=== PATIENT | male | born 1980 | race Two or more races ===

== ENCOUNTER 2018-04-15 04:41 | Emergency (ER) | payer SELFPAY ==
--- NOTE | 2018-04-15 05:09 | PDOC ---
History of Present Illness - General Stated Complaint: R FOOT INJURY Time Seen by Provider: 04/15/18 05:02 History Source: Patient Exam Limitations: No Limitations - History of Present Illness Initial Comments: 04/15/18 05:06 Best Contact: PCP: Pmhx: Pshx: Allergies: FH: Social Hx: Cigarettes/ 0 Alcohol/ social Drugs/0 38-year-old male presents to the ER complaining of pain to the right foot. Patient states he slipped and fell, hitting his right foot against a step x2d ago. Pain is described as 6/10 dull nonradiating intermittent discomfort which is exacerbated on weight-bear and certain movements. Pain is alleviated at rest. Patient states he was able to ambulate without any difficulties after his injury but noticed the swelling and pain after approximately 6 hours. Patient denies extremity numbness or tingling sensation. Patient denies any other complaint. Past History - Past Medical History Home Medications: Ambulatory Orders Clindamycin [Cleocin -] 300 mg PO TID #21 capsule 04/15/18 Review of Systems - Review of Systems Able to Perform ROS?: Yes Comments:: 04/15/18 05:05 CONSTITUTIONAL: Absent: fever, chills, diaphoresis, generalized weakness, malaise, loss of appetite MUSCULOSKELETAL: +Right foot pain Denies any ext numbness/tingling sensation neg achilles/ankle pain Absent: myalgia, arthralgia, joint swelling SKIN: Absent: rash, itching, pallor +redness to dorsal foot Is the patient limited Moz[place]ican proficient: No *Physical Exam - Physical Exam Comments: 04/15/18 05:05 GENERAL: Well developed, well nourished. Awake and alert. No acute distress. MUSCULOSKELETAL Normal range of motion at all joints. No bony deformities or tenderness. No CVA tenderness. EXTREMITIES: No cyanosis. No clubbing. No edema. No calf tenderness. SKIN: Warm and dry. Normal capillary refill. No rashes. No jaundice. Right foot: +swelling 2+pedal pulse cap refill <2sec +erythematouos to dorsal foot neg pain to base of 5th mt achilles intact right ankle F.RO.M. neg pain on palp neg obv deformities 04/15/18 05:25 ED Treatment Course - RADIOLOGY Radiology Studies Ordered: Category Date Time Status FOOT-RIGHT [RAD] Stat Radiology 04/15/18 04:48 Taken Radiograph Interpretation: 04/15/18 05:05 Xray right foot neg *DC/Admit/Observation/Transfer Diagnosis at time of Disposition: Cellulitis of foot, right - Discharge Dispostion Condition at time of disposition: Stable Decision to Admit order: No - Prescriptions Prescriptions: Clindamycin [Cleocin -] 300 mg PO TID #21 capsule - Referrals Referrals: Sam Langford MD [Staff Physician] - Victor Manuel Peters MD [Staff Physician] - - Patient Instructions Printed Discharge Instructions: DI for Cellulitis -- Adult Additional Instructions: Keep the foot elevated Take the clindamycin as prescribed until completion follow-up with infectious disease doctor listed on your discharge sheet Wound check in 2 days Return to the ER for severe/persistent/worsening pains or red streaks going up the leg - Post Discharge Activity
[2018-04-15 05:18] VITALS: BP 171/110; PULSE 82; TEMP 98.9; BMI 30.7
[2018-04-15] MEDS ORDERED: CLINDAMYCIN 900 MG PREMIX IVPB 900 MG/50 ML BAG IVPB ONE (05:23)
== END 2018-04-15 05:45 | disposition home or self-care (01) ==
LOC: JER 04:41
DX: L03.115 Cellulitis of right lower limb (principal); W01.0XXA Fall on same level from slipping, tripping and stumbling without subsequent striking against object, initial encounter; Y93.89 Activity, other specified; Y92.9 Unspecified place or not applicable
CPT/HCPCS: 73630-TC-RT-FY; 99282-25

== ENCOUNTER 2018-04-18 12:15 | Emergency (ER) | payer SELFPAY ==
[2018-04-18 12:24] VITALS: BP 155/89; PULSE 84; TEMP 99.1; BMI 30.7
[2018-04-18] MEDS ORDERED: ALBUTEROL SO4 2.5/IPRATROPIUM 0.5 INH SOL 3 ML VIAL.NEB. NEB ONE (13:37)
--- NOTE | 2018-04-18 14:01 | PDOC ---
History of Present Illness - General Chief Complaint: Injury Stated Complaint: RASH/INJURY Time Seen by Provider: 04/18/18 13:30 - History of Present Illness Initial Comments: 38-year-old male with a past medical history significant for hypertension he takes lisinopril. Presents for evaluation of right foot pain. He was seen last week diagnosed with a foot sprain and cellulitis placed on clindamycin is swelling is increased. He also now complains of swelling about the right ankle. 04/18/18 13:55 Past History - Past Medical History Allergies/Adverse Reactions: Allergies Allergy/AdvReac Type Severity Reaction Status Date / Time No Known Allergies Allergy Verified 04/18/18 12:24 Home Medications: Ambulatory Orders Clindamycin [Cleocin -] 300 mg PO TID #21 capsule 04/15/18 Oxycodone HCl/Acetaminophen [Percocet 10-325 mg Tablet] 1 each PO ASDIR COPD: No HTN: Yes - Suicide/Smoking/Psychosocial Hx Smoking History: Never smoked Information on smoking cessation initiated: No Hx Alcohol Use: No Drug/Substance Use Hx: No Substance Use Type: None Review of Systems - Review of Systems Musculoskeletal: Yes: See HPI, Joint Pain All Other Systems: Reviewed and Negative *Physical Exam - Vital Signs Last Vital Signs Temp Pulse Resp BP Pulse Ox 99.1 F 84 16 155/89 100 04/18/18 12:21 04/18/18 12:21 04/18/18 12:21 04/18/18 12:21 04/18/18 12:21 - Physical Exam Comments: There is mild erythema spotty about the medial aspect of the right ankle. There is no streaking. There is also mild swelling about the medial aspect of the ankle. There is full nonpainful range of motion both passive and active of the right ankle. There is moderate swelling about the dorsum of the foot. There is mild ecchymosis about the first MTPJ and medial aspect of the foot. There is no pain with passive motion of the MTPJ. There is diffuse nonspecific tenderness at the dorsum of the foot. No erythema warmth or induration. No pain with passive motion of the toes. Thigh and calf to soft and nontender. There is no inguinal adenopathy. 04/18/18 13:56 04/18/18 14:01 Thigh and calf to soft and nontender. Medical Decision Making - Medical Decision Making Originally diagnosed with a foot sprain cellulitis placed on clindamycin. He feels his swelling is spreading. I have a long discussion with the patient he has dependent edema. He states when he goes to standup his ankle swells even more. I do not appreciate any indication of infection today. There is spotty erythema about the medial aspect of the ankle. However I believe this is just an increase in swelling. There is no warmth induration or sensitivity associated with a small spot of erythema about the medial aspect of the ankle. This is a foot sprain. I will have her follow-up with orthopedic surgery for further evaluation and treatment options. I have encouraged him to continue taking the clindamycin he was placed on originally. He has no systemic symptoms. 04/18/18 13:59 *DC/Admit/Observation/Transfer Diagnosis at time of Disposition: Foot sprain - Discharge Dispostion Disposition: HOME Condition at time of disposition: Stable Decision to Admit order: No - Referrals Referrals: Juan Elkins MD [Staff Physician] - - Patient Instructions Printed Discharge Instructions: DI for Foot Sprain Additional Instructions: Return to the emergency room should symptoms worsen or go unresolved. Please continue to use the clindamycin as directed and finish the entire course of the antibiotic. Elevate your foot above the level of your heart multiple times a day and continue to move your ankle to encourage swelling to decrease. Tylenol for pain. Avoid anti-inflammatories because of your high blood pressure medication. Follow-up with orthopedics in one to 2 days for further evaluation and treatment options. If he develop fever or any increasing redness appear leg return to the emergency room for further evaluation and treatment options. He may continue to weight-bear as tolerated with use of the crutches. - Post Discharge Activity
== END 2018-04-18 14:10 | disposition home or self-care (01) ==
LOC: JERFT 12:15
DX: S93.601A Unspecified sprain of right foot, initial encounter (principal); X58.XXXA Exposure to other specified factors, initial encounter; Y93.89 Activity, other specified; Y92.89 Other specified places as the place of occurrence of the external cause; I10 Essential (primary) hypertension
CPT/HCPCS: 99281-25

== ENCOUNTER 2018-04-19 22:25 | Observation (INO) | payer SELFPAY ==
--- NOTE | 2018-04-19 23:12 | PDOC ---
Attending Attestation - HPI HPI: 04/20/18 00:25 The patient is a 38 year old male with a significant past medical history of HTN (on lisinopril) and GOUT who presents to the ED with complaints of headache since earlier today. The patient states he developed a bitemporal headache at 12 :00 PM earlier today. Patient states his headache is progressively worsening, He also reports photophobia associated with present symptoms. Denies nausea or vomiting. Denies diarrhea or abdominal pain. Denies any other symptoms. Documentation prepared by Ceci Lin, acting as hospitalist medical director for Teresa Doyle DO. - Physicial Exam PE: 04/20/18 00:26 Constitutional: + Uncomfortable appearing. Awake, alert, oriented. Head: Normocephalic. Atraumatic Eyes: PERRL. EOMI. Conjunctivae are not pale. ENT: Mucous membranes are moist and intact. Posterior pharynx without exudates or erythema. Uvula midline. Neck: Supple. Full ROM. No lymphadenopathy. Cardiovascular: Regular rate. Regular rhythm. S1, S2 regular. Distal pulses are 2+ and symmetric. Pulmonary/Chest: No evidence of respiratory distress. Clear to auscultation bilaterally No wheezing, rales or rhonchi. Abdominal: Soft and non-distended. There is no tenderness. No rebound, guarding or rigidity. No organomegaly. No palpable masses. Good bowel sounds. Back: No CVA tenderness. Musculoskeletal: No edema. No cyanosis. No clubbing. Full range of motion in all extremities. Nocalf tenderness. Radial/pedal pulses are intact and 2+ bilaterally Skin: Skin is warm and dry. No petechiae. No purpura. Neurological: Alert and oriented to person, place, and time. Cranial nerves II -XII are grossly intact. Normal speech. Strength is grossly symmetric. No sensory deficits. Psychiatric: Good eye contact. Normal interaction, affect and behavior. <Ceci Lin - Last Filed: 04/20/18 00:25> - Resident Resident Name: John Garcia - ED Attending Attestation I have performed the following: I have examined & evaluated the patient, The case was reviewed & discussed with the resident, I agree w/resident's findings & plan, Exceptions are as noted - Medical Decision Making 04/19/18 23:12 I, Dr. Teresa Doyle, DO, attest that this document has been prepared under my direction and personally reviewed by me in its entirety. I further attest, that it accurately reflects all work, treatment, procedures and medical decision -making performed by me. 04/20/18 00:22 a/p: 38yo male with hx of htn on lisinopril - took an extra dose today with a fraser -nausea with the fraser, photophobia -neuro intact -very hypertensive upon arrival -will medicate for fraser and see if bp is secondary to pain -will send labs, head ct 04/20/18 00:23 re-eval: still with pain despite meds -will give iv labetalol as bp is still elevated 04/20/18 02:[address] negative will continue to monitor bp cr 1.5 <Teresa Doyle - Last Filed: 04/20/18 02:14>
--- NOTE | 2018-04-19 23:18 | PDOC ---
History of Present Illness - General Chief Complaint: Blood Pressure Problem Stated Complaint: PALPITATIONS Time Seen by Provider: 04/19/18 23:02 - History of Present Illness Initial Comments: 04/19/18 23:13 38 yo M with h/o HTN, and Gout who p/w with headache. Patient reports development of worsening, bitemporal, pulsating, headache at approximately 1200 PM, with asx. nausea w/out vomiting. + Photophobia. Patient in normal state of health this morning. Denies head trauma. Headache not improved with Tylenol x 2. Took Lisinopril 20 mg x 2 today. Patient with h/o headache. Headache similar to prior MANRIQUEZ. Patient denies convulsions, neck pain/stiffness, phonophobia, aura, vision change, tinnitus, hearing loss, N/V, F,C, CP, SOB, urinary complaints, abdominal pain, diarrhea, constipation, lightheadedness, weakness, sensory changes. PMHx: as noted above ROS: as noted SHx: Denies caffeine intake, tobacco use, IVDA. Social Etoh. Allergies: NKDA Past History - Past Medical History Allergies/Adverse Reactions: Allergies Allergy/AdvReac Type Severity Reaction Status Date / Time No Known Allergies Allergy Verified 04/19/18 22:37 Home Medications: Ambulatory Orders Clindamycin [Cleocin -] 300 mg PO TID #21 capsule 04/15/18 Colchicine [Colcrys -] 0.6 mg PO DAILY 04/19/18 Lisinopril 20 mg PO DAILY 04/19/18 COPD: No HTN: Yes - Surgical History Appendectomy: Yes - Suicide/Smoking/Psychosocial Hx Smoking History: Never smoked Hx Alcohol Use: No Drug/Substance Use Hx: No Substance Use Type: None Review of Systems - Review of Systems Comments:: 04/19/18 23:17 GENERAL/CONSTITUTIONAL: No fever or chills. No weakness. HEAD, EYES, EARS, NOSE AND THROAT: No change in vision. No ear pain or discharge. No sore throat. CARDIOVASCULAR: No chest pain or shortness of breath RESPIRATORY: No cough, wheezing, or hemoptysis. GASTROINTESTINAL: +nausea. No vomiting, diarrhea or constipation. GENITOURINARY: No dysuria, frequency, or change in urination. MUSCULOSKELETAL: No joint or muscle swelling or pain. No neck or back pain. SKIN: No rash NEUROLOGIC: +headache. No vertigo, loss of consciousness, or change in strength/ sensation. ENDOCRINE: No increased thirst. No abnormal weight change HEMATOLOGIC/LYMPHATIC: No anemia, easy bleeding, or history of blood clots. ALLERGIC/IMMUNOLOGIC: No hives or skin allergy *Physical Exam - Vital Signs Last Vital Signs Temp Pulse Resp BP Pulse Ox 98.3 F 90 18 214/122 H 99 04/19/18 22:35 04/19/18 22:35 04/19/18 22:35 04/19/18 22:35 04/19/18 22:35 - Physical Exam Comments: 04/19/18 23:17 GENERAL: Awake, alert, and fully oriented, in no acute distress HEAD: No signs of trauma, normocephalic, atraumatic EYES: PERRLA, EOMI, sclera anicteric, conjunctiva clear ENT: Auricles normal inspection, hearing grossly normal, nares patent, oropharynx clear without exudates. Moist mucosa NECK: Normal ROM, supple, no lymphadenopathy, JVD, or masses LUNGS: No distress, speaks full sentences, clear to auscultation bilaterally HEART: Regular rate and rhythm, normal S1 and S2, no murmurs, rubs or gallops, peripheral pulses normal and equal bilaterally. EXTREMITIES : Normal inspection, Normal range of motion, no edema. No clubbing or cyanosis. NEUROLOGICAL: Cranial nerves II through XII grossly intact. Normal speech, normal gait, no focal sensorimotor deficits. Neg dysmetria on FTN. Normal JIMI, HTS. SKIN: Warm, Dry, normal turgor, no rashes or lesions noted ED Treatment Course - LABORATORY CBC & Chemistry Diagram: 04/19/18 23:20 04/19/18 23:20 Medical Decision Making - Medical Decision Making 04/19/18 23:35 38 yo M with h/o HTN, and Gout who p/w with bitemporal, pulsating, headache and nausea. BP 214/122, Vitals otherwise wnl. Absent neuro deficits on physical exam. Low suspicion SAH, hematoma, meningitis. Likely migraine without aura. Low suspicion HTN emergency. Will evaluate for end organ dysfunction, electrolyte abnml, metabolic derangements, acid base disturbances. ED Course: CBC, CMP, UA, Cardiac Pr. CTH Reglan 10 mg, Diphenhydramine 12.5mg 04/20/18 00:27 Repeat BP 195/130. Labetalol 10 mg, Norvasc 5 mg 04/20/18 02:03 CTH: Neg 04/20/18 02:04 BUN/Cr: 35/1.5 WBC: 11 Trop: Neg 04/20/18 02:08 Patient stable and signed out to night team. If MANRIQUEZ and BP controlled safe for d/ c with return precautions. advised to f/u with PMD. *DC/Admit/Observation/Transfer Diagnosis at time of Disposition: Hypertension Qualifiers: Hypertension type: unspecified Qualified Code(s): I10 - Essential (primary) hypertension Migraine Qualifiers: Migraine type: without aura Status migrainosus presence: without status migrainosus Intractability: not intractable Qualified Code(s): G43.009 - Migraine without aura, not intractable, without status migrainosus - Discharge Dispostion Condition at time of disposition: Stable - Referrals - Patient Instructions Printed Discharge Instructions: DI for Migraine, DI for High Blood Pressure Additional Instructions: Please return to the emergency department with any new or worsening symptoms or concerns. Please follow up with your primary care physician within 72 hours. - Post Discharge Activity - Attestations Physician Attestion: 04/19/18 23:18 I attest to the information provided in this note.
[2018-04-19] MEDS ORDERED: METOCLOPRAMIDE HCL INJECTION 10 MG/2 ML VIAL IVPUSH ONE (23:28)
[2018-04-19] MEDS ORDERED: METOCLOPRAMIDE HCL INJECTION 10 MG/2 ML VIAL ONE (23:31)
[2018-04-19 23:34] LABS: BASO % 0.1 % (0-2.0); HEMOGLOBIN 14.7 GM/dL (11.7-16.9); LYMPH % 7.5 % (8-40); MCHC 33.5 g/dl (32.0-35.9); MEAN CELL VOLUME 86.5 fl (80-96); MEAN PLT VOLUME 9.2 fl (7.5-11.1); MONO % 2.3 % (3.8-10.2); NEUT % 90.1 % (42.8-82.8); PLATELET COUNT 271 K/MM3 (134-434); RBC 5.09 M/mm3 (4.00-5.60); RDW 13.4 % (11.9-15.9)
[2018-04-20 00:01] LABS: ALBUMIN 3.7 g/dl (3.4-5.0); ALK PHOS 72 U/L (45-117); ANION GAP 10 MMOL/L (8-16); BILIRUBIN,TOTAL 0.4 mg/dL (0.2-1); BLOOD UREA NITROGEN 35 mg/dL (7-18); CALCIUM 9.8 mg/dL (8.5-10.1); CHLORIDE 105 mmol/L (98-107); CO2 25 mmol/L (21-32); CREATININE 1.5 mg/dL (0.55-1.3); GLUCOSE,RANDOM 136 mg/dL (74-106); POTASSIUM 4.1 mmol/L (3.5-5.1); SGOT/AST 24 U/L (15-37); SGPT/ALT 19 U/L (13-61); SODIUM 139 mmol/L (136-145)
[2018-04-20] MEDS ORDERED: ACETAMINOPHEN 1000 MG/100 ML VIAL (NON FORMULARY) IVPB ONE (00:19)
[2018-04-20] MEDS ORDERED: LABETALOL HCL 5 MG/1 ML (100MG/20 ML VIAL) IVPUSH ONE ×2 (00:20→01:39)
[2018-04-20] MEDS ORDERED: ACETAMINOPHEN INJECTION 100 ML IVPB ONE (00:30)
[2018-04-20] MEDS ORDERED: LABETALOL HCL 5 MG/1 ML (200MG/40ML VIAL) IVPB ONE ×2 (00:30→01:42)
[2018-04-20] MEDS ORDERED: amLODIPine BESYLATE 5 MG TABLET (FP) PO ONE (01:39)
[2018-04-20] MEDS ORDERED: amLODIPine BESYLATE 5 MG TABLET (FP) ONE (01:42)
--- NOTE | 2018-04-20 03:22 | PN ---
Teaching Attending Note Name of Resident: Corrie Ingram ATTENDING PHYSICIAN STATEMENT I saw and evaluated the patient. I reviewed the resident's note and discussed the case with the resident. I agree with the resident's findings and plan as documented. SUBJECTIVE: Patient is a 38 year old man with history of HTN and Gout who presents with headache. Patient reports development of worsening, bitemporal, pulsating, headache at approximately 1200 PM, with associated nausea and photophobia, but no vomiting. Denies head trauma. Headache not improved with Tylenol x 2. Took Lisinopril 20 mg x 2 today. Patient has history of headache. Headache similar to prior MANRIQUEZ. Patient denies neck pain/stiffness, vision change, tinnitus, hearing loss, hematuria, SOB, chest or abdominal pain. Has not seen a PCP in 1.5 years and takes Lisinopril 20 mg daily. SBP was 214 on arrival in the ER and after two doses of 10 mg labetalol IV his SBP came down to 135. OBJECTIVE: Alert Vital Signs Period Temp Pulse Resp BP Sys/Gaspar Pulse Ox Last 24 Hr 98.3 F 80-91 17-18 137-214/93-130 99-99 HEENT: No Jaundice, eye redness or discharge, PERRLA, EOMI. No papilledema. Normocephalic, atraumatic. External ears are normal and hearing is grossly intact. No nasal discharge. Neck: Supple, nontender. No palpable adenopathy or thyromegaly. No JVD Chest: Good effort. Clear to auscultation and percussion. Heart: Regular. No S3, rub or murmur Abdomen: Not distended, soft, nontender and no HSM. No rebound or guarding. Normoactive bowel sounds. Ext: Peripheral pulses intact. No leg edema. Erythema dorsum of right foot. Skin: Warm and dry. No petechiae, rash or ecchymosis. Neuro: Alert. Oriented x3. CN 2-12 grossly intact. Sensation grossly intact in all four extremities and DTR are symmetric. Home Medications Medication Instructions Recorded Clindamycin [Cleocin -] 300 mg PO TID #21 capsule 04/15/18 Colchicine [Colcrys -] 0.6 mg PO DAILY 04/19/18 Lisinopril 20 mg PO DAILY 04/19/18 Abnormal Lab Results 04/19/18 04/19/18 23:20 23:20 WBC 11.0 H Absolute Neuts (auto) 9.9 H Neutrophils % 90.1 H Lymphocytes % 7.5 L Monocytes % 2.3 L BUN 35 H Creatinine 1.5 H Random Glucose 136 H ASSESSMENT AND PLAN: 1. Hypertensive urgency - Head CT is negative and EKG is pending. Needs intense patient education and also workup for secondary hypertension. Give Lisinopril 20 bid, add amlodipine 5 mg qd, and then subsequently will need HCTZ 12.5 mg. May use combination drugs (Hyzaar) upon discharge to enhance compliance. Low salt diet, exercise and weight loss stressed. Check uric acid level. 2. PO - Will do basic work up - kidney sonogram/UA, and avoid nephrotoxic agents such as NSAIDS, aminoglycosides, contrast dyes and certain Alternative medicine products. 3. DVT prophylaxis - Lovenox 40 mg SQ q 24 hours. 4. Advance directives - Full code
--- NOTE | 2018-04-20 03:24 | PDOC ---
*Physical Exam - Vital Signs Last Vital Signs Temp Pulse Resp BP Pulse Ox 98.3 F 80 17 137/93 99 04/19/18 22:35 04/20/18 00:51 04/20/18 00:04 04/20/18 02:07 04/20/18 00:04 ED Treatment Course - LABORATORY CBC & Chemistry Diagram: 04/19/18 23:20 04/19/18 23:20 - ADDITIONAL ORDERS Additional order review: Laboratory Results 04/19/18 04/19/18 23:20 23:20 Sodium 139 Potassium 4.1 Chloride 105 Carbon Dioxide 25 Anion Gap 10 BUN 35 H Creatinine 1.5 H Creat Clearance w eGFR 52.10 Random Glucose 136 H Calcium 9.8 Total Bilirubin 0.4 AST 24 ALT 19 Alkaline Phosphatase 72 Creatine Kinase 259 Creatine Kinase Index 0.3 CK-MB (CK-2) < 1.0 Troponin I < 0.02 Total Protein 8.0 Albumin 3.7 04/19/18 23:20 RBC 5.09 MCV 86.5 MCHC 33.5 RDW 13.4 MPV 9.2 Neutrophils % 90.1 H Lymphocytes % 7.5 L Monocytes % 2.3 L Eosinophils % 0.0 Basophils % 0.1 - Medications Given in the ED: ED Medications Discontinued Medications Generic Name Dose Route Start Last Admin Trade Name Baljitq PRN Reason Stop Dose Admin Acetaminophen 1,000 mg 04/20/18 00:19 04/20/18 00:37 Ofirmev Injection - IVPB 04/20/18 00:20 1,000 mg ONCE ONE Administration Amlodipine Besylate 5 mg 04/20/18 01:39 04/20/18 02:07 Norvasc - PO 04/20/18 01:40 5 mg ONCE ONE Administration Diphenhydramine HCl 12.5 mg 04/19/18 23:29 04/19/18 23:37 Benadryl Injection - IVPUSH 04/19/18 23:30 12.5 mg ONCE ONE Administration Labetalol HCl 10 mg 04/20/18 00:20 04/20/18 00:38 Normodyne Injection - IVPUSH 04/20/18 00:21 10 mg ONCE ONE Administration Labetalol HCl 10 mg 04/20/18 01:39 04/20/18 02:07 Normodyne Injection - IVPUSH 04/20/18 01:40 10 mg ONCE ONE Administration Metoclopramide HCl 10 mg 04/19/18 23:28 04/19/18 23:37 Reglan Injection - IVPUSH 04/19/18 23:29 10 mg ONCE ONE Administration Medical Decision Making - Medical Decision Making 04/20/18 03:24 D/W Dr Card. Patient admitted to obs m/s to [facility] *DC/Admit/Observation/Transfer Diagnosis at time of Disposition: PO (acute kidney injury) Hypertension Qualifiers: Hypertension type: unspecified Qualified Code(s): I10 - Essential (primary) hypertension Migraine Qualifiers: Migraine type: without aura Status migrainosus presence: without status migrainosus Intractability: not intractable Qualified Code(s): G43.009 - Migraine without aura, not intractable, without status migrainosus - Discharge Dispostion Condition at time of disposition: Stable Decision to Admit order Date/Time: Decision to Admit Order Category Date Time Status Decision to Admit to Hospital Routine Admission 04/20/18 03:22 Ordered - Referrals - Patient Instructions Printed Discharge Instructions: DI for Migraine, DI for High Blood Pressure Additional Instructions: Please return to the emergency department with any new or worsening symptoms or concerns. Please follow up with your primary care physician within 72 hours. - Post Discharge Activity
--- NOTE | 2018-04-20 04:55 | HP ---
CHIEF COMPLAINT: headache PCP: none HISTORY OF PRESENT ILLNESS: 38M w/ pmhx of HTN and gout presents to the ED with a "20 out of 10" headache for the first time. His headache started shortly after eating at 10pm where he started feeling palpitations. He also admits to sob, dyspnea, and nausea. He denies vision changes, dizziness, vomiting, balance/coordination problems. Of note, he was recently seen in the ED for gout after which he has been taking Colchicine. He attributes his headache to a steroid injection that he got for his gout on the L big toe. Denies hx of heart disease, seizures, stroke. ER course was notable for: (1) Initial BP 215/222 > 195/130 > 137/93. WBC 11, BUN/Cr 35/1.5 (2) Labetalol 10 mg IVP given twice, Amlodipine 5 mg given (3) Recent Travel: Cruise to [facility], [place], [place] PAST MEDICAL HISTORY: HTN gout PAST SURGICAL HISTORY: Appendectomy (at age 11) Social History: Smoking: smokes hookah 3 times a week, denies cigarette use Alcohol: drinks alcohol 3 times a week while smoking hookah Drugs: denies Family History: Father: DM Mother: HTN Allergies No Known Allergies Allergy (Verified 04/19/18 22:37) HOME MEDICATIONS: Home Medications Medication Instructions Recorded Clindamycin [Cleocin -] 300 mg PO TID #21 capsule 04/15/18 Colchicine [Colcrys -] 0.6 mg PO DAILY 04/19/18 Lisinopril 20 mg PO DAILY 04/19/18 REVIEW OF SYSTEMS CONSTITUTIONAL: Absent: fever, chills, diaphoresis, generalized weakness, malaise, loss of appetite, weight change HEENT: Absent: throat pain, throat swelling, difficulty swallowing, mouth swelling, ear pain, eye pain CARDIOVASCULAR: palpitations Absent: chest pain, syncope, irregular heart rate, lightheadedness, peripheral edema RESPIRATORY: shortness of breath, dyspnea Absent: cough, orthopnea, wheezing GASTROINTESTINAL: nausea Absent: abdominal pain, abdominal distension, vomiting, diarrhea, constipation, melena, hematochezia GENITOURINARY: Absent: dysuria, hematuria MUSCULOSKELETAL: Absent: myalgia, arthralgia, joint swelling, back pain, neck pain HEMATOLOGIC/IMMUNOLOGIC: Absent: easy bleeding, easy bruising, lymphadenopathy ENDOCRINE: Absent: unexplained weight gain, unexplained weight loss, heat intolerance, cold intolerance NEUROLOGIC: headache Absent: focal weakness or paresthesias, dizziness, unsteady gait, seizure, mental status changes, bladder or bowel incontinence PSYCHIATRIC: Absent: anxiety, depression, suicidal or homicidal ideation, hallucinations. PHYSICAL EXAMINATION Vital Signs - 24 hr 04/19/18 04/20/18 04/20/18 22:35 00:04 00:51 Temperature 98.3 F Pulse Rate 90 Pulse Rate [ 91 H 80 Apical] Respiratory 18 17 Rate Blood Pressure 214/122 H Blood Pressure 195/130 H 190/112 H [Right Arm] O2 Sat by Pulse 99 99 Oximetry (%) 04/20/18 04/20/18 02:07 04:34 Temperature 98.0 F Pulse Rate Pulse Rate [ 80 Apical] Respiratory 20 Rate Blood Pressure Blood Pressure 137/93 140/80 [Right Arm] O2 Sat by Pulse 96 Oximetry (%) GENERAL: Well-appearing male. AAOx3. NAD. Comfortable. HEENT: AT/NC. Face symmetrical. EOMI. KATHLEEN. Moist mucus membranes. NECK: Supple, no LAD/JVD. LUNGS: CTA B/L. No w/r/r noted. Symmetric chest rise. No accessory muscle use. HEART: RRR. Normal S1, S2. No murmurs noted. ABDOMEN: Soft, NT/ND. +BS in all 4 Q's. No masses or bruits noted. MUSCULOSKELETAL: No pedal edema. 5/5 muscle strength in b/l u/l extremities. Tenderness on R hallux, non-erythematous. NEUROLOGICAL: Normal speech. Facial muscles intact b/l. PSYCHIATRIC: Cooperative. Good eye contact. Appropriate mood and affect. SKIN: Warm, dry, normal turgor, normal capillary refill. Laboratory Results - last 24 hr 04/19/18 04/19/18 04/19/18 23:20 23:20 23:20 WBC 11.0 H RBC 5.09 Hgb 14.7 Hct 44.0 MCV 86.5 MCH 29.0 MCHC 33.5 RDW 13.4 Plt Count 271 MPV 9.2 Absolute Neuts (auto) 9.9 H Neutrophils % 90.1 H Lymphocytes % 7.5 L Monocytes % 2.3 L Eosinophils % 0.0 Basophils % 0.1 Nucleated RBC % 0 Sodium 139 Potassium 4.1 Chloride 105 Carbon Dioxide 25 Anion Gap 10 BUN 35 H Creatinine 1.5 H Creat Clearance w eGFR 52.10 Random Glucose 136 H Calcium 9.8 Total Bilirubin 0.4 AST 24 ALT 19 Alkaline Phosphatase 72 Creatine Kinase 259 Creatine Kinase Index 0.3 CK-MB (CK-2) < 1.0 Troponin I < 0.02 Total Protein 8.0 Albumin 3.7 ASSESSMENT/PLAN: 38M w/ pmhx of HTN and gout who presented with hypertensive emergency. #hypertensive urgency; Initial BP 214/222, now 137/93. -Labetalol 10 mg given twice in ED -Amlodipine 5 mg AM QD -Lisinopril 20 mg PO BID -Reglan 10 mg IVP for nausea -Pt will need outpatient follow up for HTN #PO; baseline unknown -kidney ultrasound #gout -resume home med Colchicine 0.6 mg PO QD #FEN -no IVf -recheck lytes in AM -sodium-controlled diet dispo -admit to med-surg Visit type - Emergency Visit Emergency Visit: Yes ED Registration Date: 04/20/18 Care time: The patient presented to the Emergency Department on the above date and was hospitalized for further evaluation of their emergent condition. - New Patient This patient is new to me today: Yes Date on this admission: 04/21/18 - Critical Care Critical Care patient: No
[2018-04-20 05:22] VITALS: BMI 30.8
[2018-04-20] MEDS ORDERED: HEPARIN NA (PORCINE) 5,000 UNITS/ML 1ML VIAL SQ SCH (06:00)
[2018-04-20] MEDS ORDERED: amLODIPine BESYLATE 5 MG TABLET (FP) PO SCH (07:00)
[2018-04-20 08:17] LABS: BASO % 0.1 % (0-2.0); EOS % 0.1 % (0-4.5); HEMOGLOBIN 13.9 GM/dL (11.7-16.9); LYMPH % 11.2 % (8-40); MCH 28.6 pg (25.7-33.7); MEAN CELL VOLUME 86.6 fl (80-96); MEAN PLT VOLUME 9.5 fl (7.5-11.1); MONO % 6.1 % (3.8-10.2); NEUT % 82.5 % (42.8-82.8); PLATELET COUNT 255 K/MM3 (134-434); RBC 4.84 M/mm3 (4.00-5.60); RDW 13.3 % (11.9-15.9); WHITE BLOOD COUNT 13.4 K/mm3 (4.0-10.0)
[2018-04-20 08:28] LABS: ALBUMIN 3.6 g/dl (3.4-5.0); ALK PHOS 72 U/L (45-117); ANION GAP 13 MMOL/L (8-16); BILIRUBIN,TOTAL 0.4 mg/dL (0.2-1); BLOOD UREA NITROGEN 31 mg/dL (7-18); CALCIUM 9.6 mg/dL (8.5-10.1); CHLORIDE 106 mmol/L (98-107); CO2 24 mmol/L (21-32); CREATININE 1.3 mg/dL (0.55-1.3); GLUCOSE,RANDOM 97 mg/dL (74-106); POTASSIUM 3.9 mmol/L (3.5-5.1); SGOT/AST 18 U/L (15-37); SGPT/ALT 17 U/L (13-61); SODIUM 143 mmol/L (136-145); TOT PROT 7.5 g/dl (6.4-8.2); URIC ACID 7.7 mg/dL (2.6-7.2)
--- NOTE | 2018-04-20 09:15 | EKG ---
Test Reason : Blood Pressure : / mmHG Vent. Rate : 081 BPM Atrial Rate : 081 BPM P-R Int : 170 ms QRS Dur : 090 ms QT Int : 396 ms P-R-T Axes : 038 051 010 degrees QTc Int : 460 ms NORMAL SINUS RHYTHM POSSIBLE LEFT ATRIAL ENLARGEMENT POSSIBLE ANTERIOR INFARCT , AGE UNDETERMINED ABNORMAL ECG NO PREVIOUS ECGS AVAILABLE Confirmed by MICK KAUFMAN MD ([id number]) on 04/20/2018 9:14:36 AM Referred By: Confirmed By:MICK KAUFMAN MD
[2018-04-20 09:45] VITALS: BP 135/81; PULSE 73; TEMP 98
[2018-04-20] MEDS ORDERED: COLCHICINE 0.6 MG TABLET (FP) PO SCH (10:00)
[2018-04-20] MEDS ORDERED: LISINOPRIL 20 MG TABLET (FP) PO SCH (10:00)
--- NOTE | 2018-04-20 14:06 | DS ---
Physical Exam: SUBJECTIVE: Patient seen and examined OBJECTIVE: Vital Signs Period Temp Pulse Resp BP Sys/Gaspar Pulse Ox Last 24 Hr 98 F-98.3 F 73-91 17-20 135-214/80-130 96-99 PHYSICAL EXAM GENERAL: The patient is awake, alert, and fully oriented, in no acute distress. HEAD: Normal with no signs of trauma. EYES: PERRL, extraocular movements intact, sclera anicteric, conjunctiva clear. ENT: Ears normal, nares patent, oropharynx clear without exudates, moist mucous membranes. NECK: Trachea midline, full range of motion, supple. LUNGS: Breath sounds equal, clear to auscultation bilaterally, no wheezes, no crackles, no accessory muscle use. HEART: Regular rate and rhythm, S1, S2 without murmur, rub or gallop. ABDOMEN: Soft, nontender, nondistended, normoactive bowel sounds, no guarding, no rebound, no hepatosplenomegaly, no masses. EXTREMITIES: 2+ pulses, warm, well-perfused, no edema. NEUROLOGICAL: Cranial nerves II through XII grossly intact. Normal speech, gait not observed. PSYCH: Normal mood, normal affect. SKIN: Warm, dry, normal turgor, no rashes or lesions noted. LABS Laboratory Results - last 24 hr 04/19/18 04/19/18 04/19/18 23:20 23:20 23:20 WBC 11.0 H RBC 5.09 Hgb 14.7 Hct 44.0 MCV 86.5 MCH 29.0 MCHC 33.5 RDW 13.4 Plt Count 271 MPV 9.2 Absolute Neuts (auto) 9.9 H Neutrophils % 90.1 H Lymphocytes % 7.5 L Monocytes % 2.3 L Eosinophils % 0.0 Basophils % 0.1 Nucleated RBC % 0 Sodium 139 Potassium 4.1 Chloride 105 Carbon Dioxide 25 Anion Gap 10 BUN 35 H Creatinine 1.5 H Creat Clearance w eGFR 52.10 Random Glucose 136 H Uric Acid Calcium 9.8 Total Bilirubin 0.4 AST 24 ALT 19 Alkaline Phosphatase 72 Creatine Kinase 259 Creatine Kinase Index 0.3 CK-MB (CK-2) < 1.0 Troponin I < 0.02 Total Protein 8.0 Albumin 3.7 04/20/18 04/20/18 07:30 07:30 WBC 13.4 H RBC 4.84 Hgb 13.9 Hct 42.0 MCV 86.6 MCH 28.6 MCHC 33.0 RDW 13.3 Plt Count 255 MPV 9.5 Absolute Neuts (auto) 11.0 H Neutrophils % 82.5 Lymphocytes % 11.2 D Monocytes % 6.1 D Eosinophils % 0.1 D Basophils % 0.1 Nucleated RBC % 0 Sodium 143 Potassium 3.9 Chloride 106 Carbon Dioxide 24 Anion Gap 13 BUN 31 H Creatinine 1.3 Creat Clearance w eGFR > 60 Random Glucose 97 Uric Acid 7.7 H Calcium 9.6 Total Bilirubin 0.4 AST 18 ALT 17 Alkaline Phosphatase 72 Creatine Kinase Creatine Kinase Index CK-MB (CK-2) Troponin I Total Protein 7.5 Albumin 3.6 HOSPITAL COURSE: Date of Admission:04/20/18 Date of Discharge: 04/20/18 Discharge Summary Reason For Visit: ACUTE KIDNEY INJURY Current Active Problems PO (acute kidney injury) (Acute) Gout (Acute) Hypertensive urgency (Acute) Hypertension (Chronic) Condition: Improved - Instructions Diet, Activity, Other Instructions: You were placed in observation at [facility] after coming to the ER with a headache. Your BP was found to be 214/122. You were treated with Labetalol and Norvasc, and your BP began to improve. You were also found to have a high creatinine (measure of kidney function) which also improved when your BP improved. You are being discharged on 04/20. A prescription for Norvasc 10 mg has been sent to [facility] at [address] [place] [address]. Please schedule an appointment at the [facility] for a BP check and follow up labs in 1 week. Please return to the ER if you develop a headache, chest pain, palpitations, shortness of breath. Referrals: Getachew Fonseca MD [Staff Physician] - 1 Week Disposition: HOME - Home Medications Comprehensive Discharge Medication List: Ambulatory Orders Colchicine [Colcrys -] 0.6 mg PO DAILY 04/19/18 Lisinopril 20 mg PO DAILY 04/19/18 Amlodipine Besylate [Norvasc -] 10 mg PO DAILY #30 tablet 04/20/18
== END 2018-04-20 14:29 | disposition home or self-care (01) ==
LOC: JER 22:25 → JERBED 04-20 03:32 → J7W 04-20 04:57
PROVIDERS: ADMIT Internal Medicine; ATTEND Internal Medicine
CPT/HCPCS: 36415; 70450-TC; 76775-TC; 80053; 82550; 82553; 84484; 84550; 85025; 93005; 93010; 99284-25; G0378; J0131; J1644